=== PATIENT | female | born 1985 | race Caucasian/White ===

== ENCOUNTER 2016-12-08 15:41 | Emergency (ER) | payer OTHER ==
[~2016-12-08 15:41] MED LIST: ATARAX PO; BACTRIM DS TABL1 TA1 PO; BACTRIM DS TABL1 TA2 PO; BENTYL20 MG PO; CLEOCIN PO; CLINDAMYCIN HC300 MG PO; INTRA UTERINE DEVICE; KEFLEX500 MG PO; LORTAB 5/500 TA1 TA1 PO; OMEPRAZOLE40 MG PO; ORUDIS75 M1 PO; PHENERGAN PO; PHENERGAN PR; PHENERGAN25 M1 PO; PRENATAL W/FOLI1 TA1 PO; TRIAMCINOLONE AC1 GM TOP; ULTRAM PO; ZITHROMAX PO; ZOFRAN ODT4 MG PO
[2016-12-08 16:16] LABS: BASOPHIL# 0.1 X10e3 (0-0.3); EOSINOPHIL# 0.3 X10e3 (0-0.7); EOSINOPHIL% 3.6 % (0.0-7.0); HEMATOCRIT 44.8 % (35.0-45.0); HEMOGLOBIN 15.1 gm/dL (12.0-16.0); LYMPHOCYTE# 1.9 X10e3 (1.0-3.5); LYMPHOCYTE% 26.3 % (17.0-45.0); MEAN CELL VOLUME 94.5 FL (83-96); MEAN CORPUSCULAR HEMOGLOBIN 31.9 PG (28-34); MEAN CORPUSCULAR HGB CONC 33.8 g/dL (30-36); MEAN PLATELET VOLUME 9.6 FL (6.5-11.5); MONOCYTE# 0.4 X10e3 (0-1.0); MONOCYTE% 5.2 % (3.0-12.0); NEUTROPHIL# 4.7 X10e3 (1.5-7.1); NEUTROPHIL% 63.9 % (40-75); PLATELET COUNT 163 X10e3 (140-420); RED BLOOD COUNT 4.74 X10e (3.90-5.30); WHITE BLOOD COUNT 7.3 X10e3 (4.0-10.5)
[2016-12-08 16:24] LABS: DIFF IND NO
[2016-12-08 16:31] LABS: URINE APPEARANCE CLOUDY; URINE BILIRUBIN NEG (NEG); URINE BLOOD 3+ (NEG); URINE COLOR RED; URINE GLUCOSE NEG (NEG); URINE KETONE NEG (NEG); URINE LEUKOCYTE ESTERASE TRACE (NEG); URINE NITRATE NEG (NEG); URINE PH 6.5 (5-8); URINE PROTEIN TRACE (NEG); URINE SPECIFIC GRAVITY 1.006 (1.003-1.035); URINE UROBILINOGEN 0.2 MG/DL (NEG)
[2016-12-08 16:35] LABS: URBCS1 AUWI 25-50 /[HPF] (0-2); URINE BACTERIA AUWI NEG (NEGATIVE); URINE SQUAMOUS EPITHELIAL CELL FEW /[HPF]
[2016-12-08 16:47] LABS: CULTURE INDICATED? NO; URINE SOURCE CATH
[2016-12-08 16:48] LABS: BLOOD UREA NITROGEN 8 mg/dL (9-23); CALCIUM SERUM 8.9 mg/dL (8.4-10.2); CARBON DIOXIDE 27 mmol/L (22-31); CHLORIDE 107 mmol/L (100-111); CREATININE SERUM 0.8 mg/dL (0.6-1.4); GLOM FILT RATE Estimated ABOVE60 mL/min (>60); GLUCOSE FASTING 99 mg/dL (70-110); POTASSIUM 3.7 mmol/L (3.5-5.1); SODIUM 138 mmol/L (135-145)
[2016-12-08 16:49] LABS: URINE AMORPHOUS SEDIMENT AMORP URATES
[2016-12-10 19:54] LABS: CHLAMYDIA TRACH Not Detected (Not Detected); N GONOR Not Detected (Not Detected)
== END 2016-12-08 17:48 | disposition home or self-care (01) ==
LOC: CFTX 15:41
PROVIDERS: Nurse Practitioner Family
DX: N93.8 Other specified abnormal uterine and vaginal bleeding (principal); F17.210 Nicotine dependence, cigarettes, uncomplicated; Z90.49 Acquired absence of other specified parts of digestive tract
CPT/HCPCS: 36415; 80048; 81003; 84703; 85025; 87491; 87591; 87808; 87905; 99284